=== PATIENT | female | born 1965 | race Caucasian/White ===

== ENCOUNTER → 2019-08-29 | Outpatient (CLI) | payer BC ==
--- NOTE | 2019-09-02 12:39 | Diagnostic Imaging Report ---
INDICATION: Routine screening. COMPARISON: 08/28/2013 and 11/23/2011. TECHNIQUE: 2D and 3D bilateral screening mammography was performed with CAD. FINDINGS: Scattered fibroglandular densities are identified bilaterally. The small circumscribed nodule in the outer right breast is stable. No spiculated mass or malignant appearing microcalcifications are seen. The axillae are unremarkable. IMPRESSION: No mammographic features suspicious for malignancy are identified. ACR BI-RADS Category 2: Benign findings. Result letter will be mailed to the patient. Note: At least 10% of breast cancer is not imaged by mammography. Dictated by: Dictated on workstation # [id number]
== END ==
LOC: RAD 14:24
PROVIDERS: ATTEND Internal Medicine
DX: Z12.31 Encounter for screening mammogram for malignant neoplasm of breast (principal)
CPT/HCPCS: 77063; 77067

== ENCOUNTER 2019-10-16 05:33 | Outpatient (RCR) | payer BC ==
[~2019-10-16] VITALS: Ht 165.1 cm; Wt 88.2 kg
[~2019-10-16 05:33] MED LIST: MV-M1TAB57 PO
== END 2019-10-16 13:46 | disposition home or self-care (01) ==
LOC: PREOP 05:33
PROVIDERS: ATTEND Surgery
DX: Z01.812 Encounter for preprocedural laboratory examination (principal); Z20.828 Contact with and (suspected) exposure to other viral communicable diseases; Z80.0 Family history of malignant neoplasm of digestive organs; Z88.1 Allergy status to other antibiotic agents
CPT/HCPCS: 87635

== ENCOUNTER 2019-10-21 11:57 | Day surgery (SDC) | payer BC ==
[~2019-10-21] VITALS: Ht 165.1 cm; Wt 88.2 kg
[2019-10-21] VITALS (8 sets, daily range): BP systolic 97–138; BP diastolic 63–87
[2019-10-21] MEDS ORDERED: LACTATED RINGERS 1,000 ML IV PRN (12:15)
[2019-10-21] MEDS ORDERED: LACTATED RINGERS 1,000 ML IV ONE (12:17)
--- NOTE | 2019-10-21 12:38 | Progress Note-Pre Operative ---
Pre-Operative Progress Note H&P Reviewed The H&P was reviewed, patient examined and no changes noted. Date Seen by Provider: Oct 21, 2019 Time Seen by Provider: 12:37 Date H&P Reviewed: Oct 21, 2019 Time H&P Reviewed: 12:37 Pre-Operative Diagnosis: family history colon cancer CHAPINCITO OVIEDO DO Oct 21, 2019 12:38
[2019-10-21] MEDS ORDERED: MIDAZOLAM 2 MG/2 ML (VERSED) VIAL ONE (13:00)
[2019-10-21] MEDS ORDERED: proPOfol 200 MG/20 ML (DIPRIVAN) VIAL IV ONE (13:00)
--- OUTSIDE RECORDS SUMMARY | 2019-10-21 13:22 | XMS REPORT | Continuity of Care Document ---
Author Organization Unknown Address Unknown Phone Unavailable Allergies Active Description Code Type Severity Reaction Onset Reported/Identified Relationship to Patient Clinical Status Yes No Known Drug Allergies [id number] Drug Allergy Unknown N/A 09/29/2007 Yes levofloxacin [id number] Drug Allergy Unknown Vomiting 10/15/2019 Medications There is no data. Problems Date Dx Coded Attending Type Code Diagnosis Diagnosed By 03/08/1345 CHAPINCITO OVIEDO DO Ot Z01.812 ENCOUNTER FOR PREPROCEDURAL LABORATORY E 03/08/1345 CHAPINCITO OVIEDO DO Ot Z20.828 CONTACT W AND EXPOSURE TO OTH VIRAL COMM 03/08/1345 CHAPINCITO OVIEDO DO Ot Z80. 0 FAMILY HISTORY OF MALIGNANT NEOPLASM OF 03/08/1345 CHAPINCITO OVIEDO DO Ot Z88. 1 ALLERGY STATUS TO OTHER ANTIBIOTIC AGENT 12/24/2014 BENJI VALDEZ DO Ot V76.12 12/24/2014 BENJI VALDEZ DO Ot V76.12 07/06/2016 BENJI VALDEZ DO Ot V76.12 OT SCREEN MAMMO-MALIGN NEOPLASM OF [place] Procedures There is no data. Results Test Result Range Coronavirus SARS-CoV-2 SO 2018 - 0 08:18 Coronavirus Ab [Units/volume] in Serum Negative Negative Encounters ACCT No. Visit Date/Time Discharge Status Pt. Type Provider Facility Loc./Unit Complaint [id number] 10/16/2019 05:33:00 020 13:46:00 DIS Outpatient CHAPINCITO OVIEDO DO [facility] PREOP FAMILY HISTORY COLON CA NCER [id number] 08/29/2019 14:24:00 020 23:59:59 CLS Outpatient BENJI VALDEZ DO [facility] RAD SCREENING [id number] 08/28/2013 13:12:00 014 23:59:59 CLS Outpatient BENJI VALDEZ DO [facility] RAD SCREENING [id number] 10/21/2019 11:57:[address] Outpatient CHAPINCITO OVIEDO DO [facility] ENDO FAMILY HISTORY COLON CANCER
--- OUTSIDE RECORDS SUMMARY | 2019-10-21 13:22 | XMS REPORT | Clinical Summary ---
Author Author User, Ness Pratt Organization Celia Sadler DO, FACP Address Unknown Phone Allergies, Adverse Reactions, Alerts Allergy Name Reaction Description Start Date Severity Status Pr ovider LEVAQUIN sensitivity only Critical Active Celia Sadler Conditions or Problems Problem Name Problem Code Onset Date Status Entry Date Provider Comment Standard Description Annotate VIRAL INFECTION, ACUTE 079.99 Resolved Charis Sadler Unspecified viral infection in conditions classified elsewhere and of unspecified site IMMUNOCOMPROMISED 279.9 Resolved Celia rowe Unspecified disorder of immune mechanism FEVER 780.6 Resolved Celia Sadler Fever and other physiologic disturbances of temperature regulation DIARRHEA, ACUTE 787.91 Resolved Celia anglin Diarrhea HEMATOCHEZIA 578.1 Resolved Celia Sadler Blood in stool DEHYDRATION 276.51 Resolved Celia Sadler Dehydration PANCYTOPENIA 284.1 Resolved Celia Sadler Pancytopenia NEUROPATHY, IDIOPATHIC 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.9 Resolved 20 19/10/28 Celia Sadler Unspecified idiopathic peripheral neurop athy ANEMIA NOS 285.9 Resolved Celia Sadler Anemia, unspecified PANCYTOPENIA 284.1 Resolved Celia Sadler Pancytopenia NEVUS 216.9 Resolved Celia Sadler Benign neoplasm of skin, site unspecified KNEE PAIN, LEFT 719.46 Resolved Celia anglin Pain in joint involving lower leg SEBACEOUS CYST, INFECTED 706.2 Resolved Celia Sadler Sebaceous cyst SINUSITIS, SPHENOIDAL, ACUTE 461.3 Resolved Celia Sadler Acute sphenoidal sinusitis DIZZINESS 780.4 Resolved Celia Sadler Dizziness and giddiness NAUSEA 787.02 Resolved Celia Sadler Nausea alone WEAKNESS 780.79 Resolved Celia Sadler Other malaise and fatigue HEART MURMUR, SYSTOLIC 785.2 Resolved Mi katlin Sadler Undiagnosed cardiac murmurs NECK PAIN 723.1 Resolved Celia Sadler Cervicalgia OTHER SPECIFIED DISORDER OF SKIN 709.8 Resolved 201 06/13/28 Celia Sadler Other specified disorders of skin SKIN NEOPLASM, BENIGN 216.9 Resolved Celia Sadler Benign neoplasm of skin, site unspecified HIP PAIN 719.45 Active Celia Sadler Pain in joint involving pelvic region and thigh ELEVATED BLOOD PRESSURE WITHOUT DIAGNOSIS OF HYPERTENSION 796.2 Resolved Celia Sadler Elevated bl ood pressure reading without diagnosis of hypertension OSTEOARTHRITIS 715.90 Active Celia [place] r Osteoarthrosis, unspecified whether generalized or localized, involving unspecified site WELL WOMAN V70.0 Active Celia Sadler Routine general medical examination at a health care facility Medication List Medication Instructions Start Date Stop Date Generic Name NDC Status Provider Patient Instruction MOBIC 15 MG TABS 1 PO daily MELOXICAM [id number] [id number] No Longer Active Celia Sadler PREDNISONE 10 MG TAB 2 PO at once for 2 days then 1 PO daily for 2 days. PREDNISONE [id number] No Longer Active Celia Rin Sadler ANTIVERT 25 MG TABS 1 PO Q6hrs prn MECLIZINE HC L 12393565321 No Longer Active Celia Delfina Sadler PHENERGAN 25 MG TAB 1 PO Q6hrs prn PROMETHAZINE H CL No Longer Active Celia Delfina Sadler XANAX 0.25 MG TABS 1-2 PO Q6hrs prn dizziness A LPRAZOLAM 40342822794 No Longer Active Ceila Delfina Sadler OMEPRAZOLE 20 MG CPDR 1 PO daily OMEPRAZOLE 0009 2893460 No Longer Active Celia Delfina Sadler ZOFRAN ODT 8 MG TBDP 1 PO Q6hrs prn nausea ONDA NSETRON 72095506671 No Longer Active Celia Delfina Sadler TRANSDERM-SCOP 1.5 MG PT72 1 patch behind ear and change reji ry 3 days SCOPOLAMINE BASE 56322045290 No Longer Active Celia Sarah Sadler TRANSDERM-SCOP 1.5 MG PT72 1 patch behind ear and change reji ry 3 days SCOPOLAMINE BASE 63880685111 No Longer Active Lisette CEJA'S NASAL SPRAY (DEXAMETHASONE, GENTAMICIN, SA LINE) 2 puffs each nostril TID for [address] CEJA'S NASAL SP RAY (DEXAMETHASONE, GENTAMICIN, SALINE) No Longer Active Lisette Vasquze Vital Signs Date Name Value Unit Range Description blood pressure, diastolic - 8462-4 70 mm[Hg] BP christian blood pressure, systolic - 8480-6 122 mm[Hg] BP sys pulse rate E&M - 8867-4 82 /min H eart rate respiratory rate E&M - 9279-1 14 /min Resp rate temperature E&M 99.6 [degF] Body temp erature weight E&M - 3141-9 200 [lb_av] Weigh t Measured blood pressure, diastolic - 8462-4 82 mm[Hg] BP christian blood pressure, systolic - 8480-6 120 mm[Hg] BP sys pulse rate E&M - 8867-4 88 /min H eart rate respiratory rate E&M - 9279-1 14 /min Resp rate temperature E&M 98.6 [degF] Body temp erature weight E&M - 3141-9 204 [lb_av] Weigh t Measured Diagnostic Results Date Name Value Unit Range Description Clinical Lists Update: CBC,CMP,FLP,TSH - Chemistry Estimated Glomerular Filtration Rate (calc) 93 mL/ min/1.73m2 glucose, plasma fasting 88 mg/dL albumin, serum 3.8 g/dL alkaline phosphatase, serum 60 U/L urea nitrogen, blood 12 mg/dL calcium, serum 8.8 mg/dL chloride, serum 103 mmol/L cholesterol, serum 193 mg/dL cholesterol/HDL ratio, serum, percent 3.9 anion gap, serum 9 sodium, serum 134 mmol/L triglyceride, serum, fasting 121 mg/dL bilirubin, serum, total 0.5 mg/dL alanine aminotransferase (SGPT), serum 14 U/L aspartate aminotransferase (SGOT), serum 16 U/L protein, total, serum 6.3 g/dL potassium, serum 4.4 mmol/L LDL cholesterol, serum 120 mg/dL thyroid stimulating hormone, serum 2.42 u[iU]/mL HDL cholesterol, serum 49.0 mg/dL creatinine, serum 0.7 mg/dL carbon dioxide, venous blood 26.0 mmol/L Clinical Lists Update: CBC,CMP,FLP,TSH - Hematology erythrocyte (RBC) count 4.43 10*6/mm3 leukocyte count, blood 6.4 10*3/mm3 mean corpuscular volume, RBC 81 fL red blood cell distribution width 14.9 % hemoglobin, blood 11.6 g/dL platelet count 269 10*3/mm3 hematocrit, blood 35.7 % Encounters Code Encounter Date Provider Facility CPT-07698 Ofc Vst, Est Level IV 15:55:09 CDT Celia Anna Sadler DO, FACP CPT-32110 Ofc Vst, Est Level III 17:28:07 CDT Celia S cari Sadler DO, FACP CPT-32162 Ofc Vst, Est Level III 13:02:11 CDT Celia S cari Sadler DO, FACP CPT-94034 Ofc Vst, Est Level IV 10:15:33 TURBOGENERATOR OPERATOR Celia Anna Sadler [facility] CPT-96513 Ofc Vst, Est Level IV 10:56:56 CDT Celia Anna Sadler DO, FACP CPT-69298 Ofc Vst, Est Level IV 10:52:34 CDT Celia Anna Sadler DO, FACP CPT-73250 Ofc Vst, Est Level III 16:04:34 CDT Celia S cari Sadler [facility] CPT-26174 Ofc Vst, Est Level II 12:46:19 CDT Celia Anna Sadler DO, FACP CPT-60159 Ofc Vst, Est Level III 13:53:48 TURBOGENERATOR OPERATOR Celia Carlos Sadler [facility] CPT-93627 Ofc Vst, Est Level III 14:16:27 CDT Celia S cari Sadler DO, FACTorrie CPT-37934 Ofc Vst, Est Level IV 10:53:16 CDT Celia Castillo kala Sadler DO, FACTorrie CPT-73671 Ofc Vst, New Level IV 11:21:46 CDT Celia Sadler DO, FACP Procedures Code Procedure Name Date Entry Date Standard Desc ription CPT-74748 Preventive, Est, (40-64) 17:04:43 CDT 11/02 CPT-93698 Preventive, Est, (40-64) 18:42:46 CDT 11/06
--- OUTSIDE RECORDS SUMMARY | 2019-10-21 13:22 | XMS REPORT | Clinical Summary ---
Author Author Ness gomez Organization Celia Sadler DO, [place] [address] Phone Unavailable Allergies, Adverse Reactions, Alerts Allergy Name Reaction Description Start Date Severity Status Pr ovider LEVAQUIN sensitivity only Critical Active Celia Sadler Conditions or Problems Problem Name Problem Code Onset Date Status Entry Date Provider Comment Standard Description Annotate HIP PAIN 719.45 Active Celia Sadler PAIN IN JOINT, PELVIC REGION AND THIGH OSTEOARTHRITIS 715.90 Active Celia [place] r OSTEOARTHROSIS, UNSPECIFIED WHETHER GENERALIZED OR LOCALIZED, UNSPECIFIED SITE WELL WOMAN V70.0 Active Celia Sadler ROUTINE GENERAL MEDICAL EXAMINATION AT HEALTH CARE FACILITY Medication List Medication Instructions Start Date Stop Date Generic Name NDC Status Provider Patient Instruction Drug Treatment Unknown - unknown Vital Signs Date Name Value Unit Range Description blood pressure, diastolic 82 mm[Hg] BP christian blood pressure, systolic 120 mm[Hg] BP sys pulse rate E&M 88 /min Heart rate respiratory rate E&M 14 /min Resp rate temperature E&M 98.6 [degF] Body temp erature weight E&M 204 [lb_av] Weight Measure d
--- OUTSIDE RECORDS SUMMARY | 2019-10-21 13:22 | XMS REPORT | Clinical Summary ---
Author Author Ness gomez Organization Celia Sadler DO, [place] [address] Phone Unavailable Allergies, Adverse Reactions, Alerts Allergy [...]
--- OUTSIDE RECORDS SUMMARY | 2019-10-21 13:22 | XMS REPORT ---
Author Aura Esqueda [facility] eClinicalWorks Address Unknown Phone Unavailable Care Team Providers Care Tobacco Sprayer Name Role Phone LUCIO HANLEY Unavailable Allergies No Known Allergies Problems Problem Type Condition Code Onset Dates Condition Statu s Assessment Encounter for immunization Z23 A ctive Medications No Known Medications Procedures Procedure Coding System Code Date SINGLE IMMUNIZATION ADMIN CPT-4 75151 Jan FLUARIX QUAD P-FREE 3 AND UP .50 2015 CPT-4 35293 Jan 24, 2016 Results No Known Results Immunizations Vaccine Administration Date FLUARIX QUAD P-FREE 3 AND UP .50 2015Jan 24, 2016 Summary Purpose eClinicalWorks Submission
--- NOTE | 2019-10-21 13:47 | Progress Note-Post Operative ---
Post-Operative Progess Note Surgeon (s)/Teaching Assistant (s) Surgeon CHAPINCITO OVIEDO DO Teaching Assistant: na Pre-Operative Diagnosis family history colon cancer Post-Operative Diagnosis normal colon Procedure & Operative Findings Date of Procedure 10/21/19 Procedure Performed/Findings colonoscopy Anesthesia Type per [facility] Estimated Blood Loss Estimated blood loss (mL): none Specimens/Packing Specimens Removed none CHAPINCITO OVIEDO DO Oct 21, 2019 13:47
--- NOTE | 2019-10-21 13:49 | Discharge Inst-Simple/Standard ---
Discharge Inst-Standard Patient Instructions/Follow Up Plan of Care/Instructions/FU: Peterson- 5 years Need repeat colonoscopy in 5 years due to family history of colon cancer. If you have any bowel issues before then be seen at that time. Activity as Tolerated: Yes Discharge Diet: Regular Diet CHAPINCITO OVIEDO DO Oct 21, 2019 13:49
--- NOTE | 2019-10-21 15:03 | Anesthesia-General Post-Op ---
MAC Patient Condition Mental Status/LOC: Same as Preop Cardiovascular: Satisfactory Nausea/Vomiting: Absent Respiratory: Satisfactory Pain: Controlled Complications: Absent Post Op Complications Complications None Follow Up Care/Instructions Patient Instructions None needed. Anesthesiology Discharge Order Discharge Order Patient was seen after the procedure and she was doing well, no complaints, stable vital signs, no apparent adverse anesthesia problems. EDI MYLES DO Oct 21, 2019 15:03
--- NOTE | 2019-10-21 15:27 | OPERATIVE REPORT ---
DATE OF SERVICE: 10/21/2019 PREOPERATIVE DIAGNOSIS: Family history of colon cancer. POSTOPERATIVE DIAGNOSIS: Normal colonoscopy. PROCEDURE PERFORMED: Colonoscopy. SURGEON: Chapincito Winkler DO ANESTHESIA: Per MDA. ESTIMATED BLOOD LOSS: None. COMPLICATIONS: None. INDICATIONS FOR PROCEDURE: The patient is a 54-year-old female with family history of colon cancer. She understands the risks and benefits of procedure and wished to proceed with the procedure. Consent was signed in the chart. DESCRIPTION OF PROCEDURE: The patient was taken to the endoscopy suite and placed in a left lateral recumbent position. Timeout was performed. Digital rectal exam was performed. There were no palpable polyps, masses or ulcerations. Scope was inserted in the rectum and advanced all the way to cecum with minimal difficulty. Prep was adequate. Scope was then slowly retracted back. There were no polyps, masses or ulceration of the cecum, ascending, transverse, descending and sigmoid colon. Once in the rectum, scope was retroflexed noting no other pathology. Scope was returned to its normal position, slowly withdrawn until completely removed. The patient tolerated the procedure well without any complications. She was taken to the recovery room in stable condition. RECOMMENDATIONS: The patient will need repeat colonoscopy in 5 years. Any issues before that be seen at that time. Job ID: [id number] DocumentID: [id number] Dictated Date: 10/21/2019 13:51:20 Drain Cleaner Date: 10/21/2019 15:26:38 Dictated By: CHAPINCITO WINKLER DO
== END 2019-10-21 14:25 | disposition home or self-care (01) ==
LOC: ENDO 11:57
PROVIDERS: ATTEND Surgery
DX: Z12.11 Encounter for screening for malignant neoplasm of colon (principal); Z80.0 Family history of malignant neoplasm of digestive organs; Z88.1 Allergy status to other antibiotic agents
CPT/HCPCS: 84703

== ENCOUNTER 2020-05-01 14:48 | Inpatient (IN) | payer BC ==
[~2020-05-01] VITALS: Ht 157 cm; Wt 84.0 kg
--- NOTE | 2020-05-01 15:14 | ED Abdominal Pain ---
General Chief Complaint: Abdominal/GI Problems Stated Complaint: STOMACH PAIN Source of Information: Patient Exam Limitations: No Limitations History of Present Illness Date Seen by Provider: May 01, 2020 Time Seen by Provider: 14:56 Initial Comments Patient presents ER by private conveyance from home with chief complaint for about an hour and a half she has been experiencing epigastric abdominal discomfort without nausea. She rates it as a 5 or 6 out of 10. She is had a bowel movement today and her last intake was breakfast around 8 hours ago. She says she had the same pain lasted about an hour or so a month ago but since it spontaneously resolved she never got it checked out. She is a patient of Dr. Clarke. She takes vitamins but no routine medications. She has a history of a but no other abdominal surgeries. No heart disease. She does have a history of anxiety with panic disorder. When she first arrived she became choked up saying she could not breathe and this episode lasted about 1 minute. No loss of consciousness. Echocardiogram [address] Veliz demonstrates normal ejection fraction of 60% with mild mitral and tricuspid regurgitation. Allergies and Home Medications Allergies Coded Allergies: levofloxacin (Verified Allergy, Unknown, Vomiting, 10/15/19) Home Medications Mv-Mn/Folic Acid/Calcium/Vit K 1 Each Tablet, 1 EACH PO DAILY, (Reported) Patient Home Medication List Home Medication List Reviewed: Yes Review of Systems Review of Systems Constitutional: No chills, No diaphoresis, No dizziness, No fever, No malaise EENTM: No Blurred Vision, No Double Vision Respiratory: See HPI; Denies Cough, Denies Orthopnea; Shortness of Air Cardiovascular: Denies Chest Pain, Denies Edema, Denies Lightheadedness Gastrointestinal: Abdominal Pain; Denies Constipated (Bowel movement this morning), Denies Diarrhea, Denies Nausea Genitourinary: Denies Burning, Denies Discharge Musculoskeletal: No back pain, No joint pain Skin: No pruritus, No rash Psychiatric/Neurological: Denies Headache, Denies Numbness All Other Systems Reviewed Negative Unless Noted: Yes Past Uwmnten-Jecqpw-Ckwcvs Hx Patient Social History Alcohol Use: Denies Use Drug of Choice: Denies recreational drug use Smoking Status: Never a Smoker Recent Hopitalizations: No Seasonal Allergies Seasonal Allergies: No Past Medical History Surgeries: Yes (cyst removed x2, L foot sx, knee scope, ) Section Respiratory: No Cardiac: No Neurological: No Reproductive Disorders: No Genitourinary: No Gastrointestinal: No Musculoskeletal: No Endocrine: No HEENT: No Cancer: No Psychosocial: No Integumentary: No Blood Disorders: No Family Medical History Colon cancer Physical Exam Vital Signs Vital Signs - First Documented 05/01/20 14:50 Temp 35.9 Pulse 75 Resp 18 B/P (MAP) 167/92 (117) Pulse Ox 99 Capillary Refill : Height/Weight/BMI Height: '" Weight: lbs. oz. kg; 32.35 BMI Method: General Appearance: WD/WN, moderate distress HEENT: PERRL/EOMI, pharynx normal Neck: non-tender, full range of motion, supple, normal inspection Respiratory: lungs clear, normal breath sounds, no respiratory distress, no accessory muscle use Cardiovascular: normal peripheral pulses, regular rate, rhythm Peripheral Pulses: 2+ Radial Pulses (R), 2+ Radial Pulses (L) Gastrointestinal: normal bowel sounds, soft, no organomegaly, guarding (Epigastric); No rebound; tenderness (Epigastric and right upper quadrant with out Vigil sign. Negative for tenderness or rebound tenderness over McBurney's point, mesenteric signs or psoas signs.) Neurologic/Psychiatric: alert, normal mood/affect, oriented x 3 Skin: normal color, warm/dry Progress/Results/Core Measures Results/Orders Lab Results Laboratory Tests Test 05/01/20 15:00 Range/Units White Blood Count 9.4 4.3-11.0 10^3/uL Red Blood Count 4.75 3.80-5.11 10^6/uL Hemoglobin 14.2 11.5-16.0 g/dL Hematocrit 43 35-52 % Mean Corpuscular Volume 90 80-99 fL Mean Corpuscular Hemoglobin 30 25-34 pg Mean Corpuscular Hemoglobin Concent 33 32-36 g/dL Red Cell Distribution Width 12.3 10.0-14.5 % Platelet Count 259 130-400 10^3/uL Mean Platelet Volume 10.5 9.0-12.2 fL Immature Granulocyte % (Auto) 0 % Neutrophils (%) (Auto) 69 42-75 % Lymphocytes (%) (Auto) 23 12-44 % Monocytes (%) (Auto) 5 0-12 % Eosinophils (%) (Auto) 2 0-10 % Basophils (%) (Auto) 1 0-10 % Neutrophils # (Auto) 6.5 1.8-7.8 10^3/uL Lymphocytes # (Auto) 2.2 1.0-4.0 10^3/uL Monocytes # (Auto) 0.4 0.0-1.0 10^3/uL Eosinophils # (Auto) 0.2 0.0-0.3 10^3/uL Basophils # (Auto) 0.1 0.0-0.1 10^3/uL Immature Granulocyte # (Auto) 0.0 0.0-0.1 10^3/uL Sodium Level 139 135-145 MMOL/L Potassium Level 3.5 L 3.6-5.0 MMOL/L Chloride Level 104 98-107 MMOL/L Carbon Dioxide Level 22 21-32 MMOL/L Anion Gap 13 5-14 MMOL/L Blood Urea Nitrogen 18 7-18 MG/DL Creatinine 0.86 0.60-1.30 MG/DL Estimat Glomerular Filtration Rate > 60 BUN/Creatinine Ratio 21 Glucose Level 110 H 70-105 MG/DL Calcium Level 9.4 8.5-10.1 MG/DL Corrected Calcium 9.1 8.5-10.1 MG/DL Total Bilirubin 0.4 0.1-1.0 MG/DL Aspartate Amino Transf (AST/SGOT) 21 5-34 U/L Alanine Aminotransferase (ALT/SGPT) 27 0-55 U/L Alkaline Phosphatase 64 40-136 U/L Troponin I < 0.028 <0.028 NG/ML C-Reactive Protein High Sensitivity 0.27 0.00-0.50 MG/DL Total Protein 7.4 6.4-8.2 GM/DL Albumin 4.4 3.2-4.5 GM/DL Lipase 24 8-78 U/L Serum Alcohol < 10 <10 MG/DL My Orders Orders - JENN FLORIAN Ed Iv/Invasive Line Start (05/01/20 15:03) Lactated Ringers (Lr 1000 Ml Iv Solution (05/01/20 15:15) Ct Abdomen/Pelvis W (05/01/20 15:03) Ua Culture If Indicated (05/01/20 15:03) Drug Screen Stat (Urine) (05/01/20 15:03) Alcohol (05/01/20 15:03) Lipase (05/01/20 15:03) Cbc With Automated Diff (05/01/20 15:03) Comprehensive Metabolic Panel (05/01/20 15:03) Hs C Reactive Protein (05/01/20 15:03) Fentanyl Injection (Sublimaze Injection (05/01/20 15:15) Pantoprazole Injection (Protonix Injecti (05/01/20 15:15) Ekg Tracing (05/01/20 15:08) Continuous Ekg Monitoring (05/01/20 15:08) Troponin I (05/01/20 15:08) Chest 1 View, Ap/Pa Only (05/01/20 15:18) Ondansetron Injection (Zofran Injectio (05/01/20 15:30) Ondansetron Injection (Zofran Injectio (05/01/20 15:22) Iohexol Injection (Omnipaque 350 Mg/Ml 1 (05/01/20 15:30) Received Contrast (Hold Metformin- Contr (05/01/20 15:30) Ns (Ivpb) (Sodium Chloride 0.9% Ivpb Bag (05/01/20 15:30) Medications Given in ED Current Medications Medications Dose Ordered Sig/Domingo Route Start Time Stop Time Status Last Admin Dose Admin Fentanyl Citrate 25 mcg ONCE ONCE IVP 05/01/20 15:15 05/01/20 15:16 DC 05/01/20 15:18 25 MCG Iohexol 100 ml ONCE ONCE IV 05/01/20 15:30 05/01/20 15:32 DC 05/01/20 15:40 100 ML Lactated Ringer's 1,000 ml @ 0 mls/hr Q0M ONCE IV 05/01/20 15:15 05/01/20 15:16 DC 05/01/20 15:18 1,000 MLS/HR Ondansetron HCl 8 mg ONCE ONCE IVP 05/01/20 15:30 05/01/20 15:31 DC 05/01/20 15:28 8 MG Pantoprazole 40 mg ONCE ONCE IV 05/01/20 15:15 05/01/20 15:16 DC 05/01/20 15:18 40 MG Sodium Chloride 100 ml ONCE ONCE IV 05/01/20 15:30 05/01/20 15:32 DC 05/01/20 15:40 80 ML Vital Signs/I&O 05/01/20 14:50 Temp 35.9 Pulse 75 Resp 18 B/P (MAP) 167/92 (117) Pulse Ox 99 Progress Progress Note : Time: 15:12 Progress Note Patient appeared to have a panic attack when she first arrived. This has since resolved. Because of her sudden onset of shortness of air an EKG and troponin were ordered. Patient does not have any significant risk factors for coronary disease except for her age. With a negative troponin her heart score would be 2 points Low risk; 0.9-1.7% 30-day MACE. Repeat troponin at 3 hours (1630) and if negative, discharge home with outpatient follow-up. Differential for her epigastric pain includes although unlikely atypical angina. Gallbladder, gastritis, pancreatitis, colitis. Plan to give her some pantoprazole and 25 mcg of fentanyl. We did review her medical records. We will give her a liter of fluids and get a CT of her abdomen and pelvis to rule out significant, surgical disease. Initial ECG Impression Date: May 01, 2020 Initial ECG Impression Time: 14:52 Initial ECG Rate: 63 Initial ECG Rhythm: Normal Sinus Initial ECG Intervals: Normal Initial ECG Impression: Normal Initial ECG Comparisson: No Previous ECG Available Comment Normal sinus rhythm without clinically relevant ST elevation or depression. Diagnostic Imaging Diagonstic Imaging: CT (With IV contrast) Plain Films/CT/US/NM/MRI: abdomen, pelvis Comments [facility], [place] NAME: [facility] REC#: [id number] PT STATUS: REG ER : 1965 PHYSICIAN: JENN FLORIAN MD ADMIT DATE: 05/01/20/ER Draft Date of Exam:05/01/20 CT ABDOMEN/PELVIS W PROCEDURE: CT abdomen and pelvis with contrast. TECHNIQUE: Multiple contiguous axial images were obtained through the abdomen and pelvis after administration of intravenous contrast. Auto Exposure Controls were utilized during the CT exam to meet ALARA standards for radiation dose reduction. All CT scans use one or more of the following dose optimizing techniques: automated exposure control, MA and/or KvP adjustment based on patient size and exam type or iterative reconstruction. INDICATION: Right upper quadrant pain. FINDINGS: The heart size is normal. There is a very large hiatal hernia with majority of the stomach being within the thoracic cavity. Pylorus is at the expected location of the GE junction. Stomach does not, however, appear to be torsed. The liver is normal in size and without focal lesions. Gallbladder is unremarkable. There is no biliary ductal dilatation. Spleen is normal. The pancreas and adrenal glands are unremarkable. The kidneys are normal in appearance. There is a midline intra-abdominal wall hernia which appears to contain a closed loop of small bowel. Bowel proximal to this is dilated with air-fluid levels. There is no free air. No ascites. Bladder is normal. Uterus is normal. There is no pelvic mass or adenopathy. There are mild degenerative changes in the spine. IMPRESSION: 1. Small bowel obstruction secondary to a closed loop obstruction through a small midline intra-abdominal wall hernia. 2. Large hiatal hernia with the entire stomach being virtually within the thoracic cavity. Findings conveyed directly to Dr. Florian at 3:55 p.m. via telephone. Dictated on workstation # [id number] Dict: 05/01/20 1552 Trans: 05/01/20 1600 PJE [id number] Interpreted by: SUSY KLEIN MD Electronically signed by: Reviewed: Reviewed by Mo Diagonstic Imaging: Xray Plain Films/CT/US/NM/MRI: chest Comments [facility], [place] NAME: [facility] REC#: [id number] PT STATUS: REG ER : 1965 PHYSICIAN: JENN FLORIAN MD ADMIT DATE: 05/01/20/ER Draft Date of Exam:05/01/20 CHEST 1 VIEW, AP/PA ONLY INDICATION: Epigastric pain and shortness of breath. FINDINGS: There is a large hiatal hernia. Heart size is normal. Mediastinum is unremarkable. There is no pneumothorax. There are some dilated loops of small bowel in the midabdomen. IMPRESSION: 1. Large hiatal hernia. 2. Dilated loops of small bowel suspect for small bowel obstruction. Dictated on workstation # [id number] Dict: 05/01/20 1556 Trans: 05/01/20 1601 PJE [id number] Interpreted by: SUSY KLEIN MD Electronically signed by: Reviewed: Reviewed by Me Departure Communication (Admissions) Time/Spoke to Admitting Phy: 16:00 Discussed the case with Dr. Sánchez and he would like the patient put up with IV fluids, n.p.o. at midnight, clear liquid diet for now and pain and nausea medicines. Plan for ventral hernia repair at 930 in the OR. Impression Primary Impression: Ventral hernia with obstruction and without gangrene Additional Impression: Hiatal hernia Disposition: ADMITTED INPATIENT Condition: Stable Admissions Decision to Admit Reason: Admit from ER (General) Decision to Admit/Date: May 01, 2020 Time/Decision to Admit Time: 15:45 Departure-Patient Inst. Referrals: BENJI VALDEZ DO (PCP/Family) Primary Care Physician JENN FLORIAN May 01, 2020 15:14
[2020-05-01] MEDS ORDERED: LACTATED RINGERS 1,000 ML IV ONE (15:15)
[2020-05-01] MEDS ORDERED: PANTOPRAZOLE 40 MG (PROTONIX) VIAL IV ONE (15:15)
[2020-05-01] MEDS ORDERED: fentaNYL INJECTION 100 MCG/2 ML AMP IVP ONE (15:15)
[2020-05-01 15:19] LABS: BASOPHILS # (AUTO) 0.1 10^3/uL (0.0-0.1); BASOPHILS % (AUTO) 1 % (0-10); EOSINOPHILS # (AUTO) 0.2 10^3/uL (0.0-0.3); EOSINOPHILS % (AUTO) 2 % (0-10); HEMATOCRIT 43 % (35-52); HEMOGLOBIN 14.2 g/dL (11.5-16.0); LYMPHOCYTES # (AUTO) 2.2 10^3/uL (1.0-4.0); LYMPHOCYTES % (AUTO) 23 % (12-44); MEAN CORPUSCULAR HEMOGLOBIN 30 pg (25-34); MEAN CORPUSCULAR HGB CONC 33 g/dL (32-36); MEAN CORPUSCULAR VOLUME 90 fL (80-99); MEAN PLATELET VOLUME 10.5 fL (9.0-12.2); MONOCYTES # (AUTO) 0.4 10^3/uL (0.0-1.0); MONOCYTES % (AUTO) 5 % (0-12); NEUTROPHILS # (AUTO) 6.5 10^3/uL (1.8-7.8); NEUTROPHILS % (AUTO) 69 % (42-75); PLATELET COUNT 259 10^3/uL (130-400); WHITE BLOOD COUNT 9.4 10^3/uL (4.3-11.0)
[2020-05-01 15:21] LABS: ALBUMIN 4.4 GM/DL (3.2-4.5); CHLORIDE 104 MMOL/L (98-107); POTASSIUM 3.5 MMOL/L (3.6-5.0); SODIUM 139 MMOL/L (135-145)
[2020-05-01 15:22] LABS: CALCIUM 9.4 MG/DL (8.5-10.1)
[2020-05-01] MEDS ORDERED: ONDANSETRON 4 MG/2 ML (SDV) Z0FRAN ONE (15:22)
[2020-05-01 15:23] LABS: GLUCOSE 110 MG/DL (70-105); TOTAL PROTEIN 7.4 GM/DL (6.4-8.2)
[2020-05-01 15:24] LABS: CARBON DIOXIDE 22 MMOL/L (21-32)
[2020-05-01 15:25] LABS: BILIRUBIN,TOTAL 0.4 MG/DL (0.1-1.0)
[2020-05-01 15:26] LABS: ALKALINE PHOSPHATASE 64 U/L (40-136)
[2020-05-01 15:27] LABS: CREATININE SERUM 0.86 MG/DL (0.60-1.30); GFR ESTIMATED > 60
[2020-05-01 15:28] LABS: BUN/CREATININE RATIO 21
[2020-05-01 15:30] LABS: ALANINE AMINOTRANSFERASE 27 U/L (0-55); LIPASE 24 U/L (8-78)
[2020-05-01] MEDS ORDERED: HOLD METFORMIN - RECEIVED CONTRAST 20 ML VIAL IV SCH (15:30)
[2020-05-01] MEDS ORDERED: IOHEXOL 350 MG/ML 100 ML (OMNIPAQUE 350) VIAL IV ONE (15:30)
[2020-05-01] MEDS ORDERED: NS 100 ML (IVPB) BAG IV ONE (15:30)
[2020-05-01] MEDS ORDERED: ONDANSETRON 4 MG/2 ML (SDV) Z0FRAN IVP ONE (15:30)
--- NOTE | 2020-05-01 16:01 | Diagnostic Imaging Report ---
PROCEDURE: CT abdomen and pelvis with contrast. TECHNIQUE: Multiple contiguous axial images were obtained through the abdomen and pelvis after administration of intravenous contrast. Auto Exposure Controls were utilized during the CT exam to meet ALARA standards for radiation dose reduction. All CT scans use one or more of the following dose optimizing techniques: automated exposure control, MA and/or KvP adjustment based on patient size and exam type or iterative reconstruction. INDICATION: Right upper quadrant pain. FINDINGS: The heart size is normal. There is a very large hiatal hernia with majority of the stomach being within the thoracic cavity. Pylorus is at the expected location of the GE junction. Stomach does not, however, appear to be torsed. The liver is normal in size and without focal lesions. Gallbladder is unremarkable. There is no biliary ductal dilatation. Spleen is normal. The pancreas and adrenal glands are unremarkable. The kidneys are normal in appearance. There is a midline intra-abdominal wall hernia which appears to contain a closed loop of small bowel. Bowel proximal to this is dilated with air-fluid levels. There is no free air. No ascites. Bladder is normal. Uterus is normal. There is no pelvic mass or adenopathy. There are mild degenerative changes in the spine. IMPRESSION: 1. Small bowel obstruction secondary to a closed loop obstruction through a small midline intra-abdominal wall hernia. 2. Large hiatal hernia with the entire stomach being virtually within the thoracic cavity. Findings conveyed directly to Dr. Florian at 3:55 p.m. via telephone. Dictated by: Dictated on workstation # [id number]
--- NOTE | 2020-05-01 16:01 | Diagnostic Imaging Report ---
INDICATION: Epigastric pain and shortness of breath. FINDINGS: There is a large hiatal hernia. Heart size is normal. Mediastinum is unremarkable. There is no pneumothorax. There are some dilated loops of small bowel in the midabdomen. IMPRESSION: 1. Large hiatal hernia. 2. Dilated loops of small bowel suspect for small bowel obstruction. Dictated by: Dictated on workstation # [id number]
[2020-05-01] MEDS ORDERED: PROMETHAZINE INJ 25 MG/ML (PHENERGAN) AMP IVP ONE (16:15)
[2020-05-01] MEDS ORDERED: HYDR-3817 PO (16:24)
--- NOTE | 2020-05-01 16:24 | Progress Note-Pre Operative ---
Pre-Operative Progress Note H&P Reviewed The H&P was reviewed, patient examined and no changes noted. Date Seen by Provider: May 01, 2020 Time Seen by Provider: 16:30 Date H&P Reviewed: May 01, 2020 Time H&P Reviewed: 16:30 Pre-Operative Diagnosis: incarcerated ventral abdominal hernia PATRICK TRIPATHI MD May 01, 2020 16:24
--- NOTE | 2020-05-01 16:25 | Discharge Inst-Surgical ---
D/C Lap Instructions-BHUMI New, Converted, or Re-Newed RX: RX on Chart Follow Up Appt in 2 weeks Activity as tolerated No driving for 24 hours No driving while on pain medications Incentive Spirometry use every 2 hours while awake Regular Diet Symptoms to Report: Fever over 101 degree F, Nausea/Vomiting Infection Signs and Symptoms to report: Increased redness, Foul odor of wound, Increased drainage Bathing instructions: May shower Operative Area Clean/Dry; Keep incision clean/dry If any problems/questions: Contact your physician or go to Emergency Room PATRICK TRIPATHI MD May 01, 2020 16:25
[2020-05-01] MEDS ORDERED: fentaNYL INJECTION 100 MCG/2 ML AMP IVP PRN (16:30)
[2020-05-01] MEDS ORDERED: HYDROcodone/APAP 7.5 MG/325 MG (LORTAB, LORCET PLUS) TABLET PO PRN (16:30)
[2020-05-01 16:40] VITALS: BP 130/59
[2020-05-01] MEDS ORDERED: CATHETER FLUSH 10 ML SYR IV PRN (17:00)
[2020-05-01] MEDS: LACTATED RINGERS 1,000 ML IV SCH (17:19)
--- NOTE | 2020-05-01 17:56 | HISTORY AND PHYSICAL ---
DATE OF SERVICE: ATTENDING PRIMARY CARE PHYSICIAN Celia Sadler DO HISTORY OF PRESENT ILLNESS: The patient is a 55-year-old female who presented to the Emergency Department with abdominal pain, more in the epigastric region. She states that she is able to eat and also did have a bowel movement today. She states that she has had a similar type of pain before in the past few months as well. A CT scan was performed, which did show what appears to be an incarcerated ventral abdominal hernia. She does have some discomfort; however, no peritoneal signs. She is afebrile and has a normal white count. She also did have previous cardiac workup with an echocardiogram, which did show an ejection fraction of 60%. PAST MEDICAL HISTORY: Degenerative joint disease. PAST SURGICAL HISTORY: Left foot surgery, knee arthroscopy. ALLERGIES: LEVOFLOXACIN. MEDICATIONS: Multivitamin daily. SOCIAL HISTORY: Negative smoke, negative alcohol. FAMILY HISTORY: Noncontributory. VITAL SIGNS: Temperature 35.9, blood pressure 167/92, pulse 75, respirations 18, pulse ox 99% on room air. REVIEW OF SYSTEMS: A well-nourished female, currently in no acute distress. She is not experiencing any shortness of breath or difficulty breathing. No chest pain, palpitations, diaphoresis. No nausea, vomiting. No diarrhea, constipation. No red blood per rectum, no dark tarry stools. No fever, chills, no recent inadvertent weight loss. All other review of systems negative. PHYSICAL EXAMINATION: CHEST: Clear. Good breath sounds bilaterally. HEART: Regular, no murmurs. EXTREMITIES: No lower extremity edema, negative Homans sign. HEENT: No scleral icterus. NECK: No cervical lymphadenopathy. ABDOMEN: Soft, nondistended. There is pain supraumbilically. LABORATORY DATA: WBC 9.4, hemoglobin 14.2, hematocrit 43, platelets 259. BUN 18, creatinine 0.86. ASSESSMENT AND PLAN: A 55-year-old female with a symptomatic incarcerated ventral abdominal hernia. We will admit her, start IV fluids, clear liquid diet as well as adequate pain control; however, also schedule her for an open ventral abdominal hernia repair with mesh. Job ID: [id number] DocumentID: [id number] Dictated Date: 05/01/2020 16:33:19 Bowling Floor Desk Clerk Date: 05/01/2020 17:55:03 Dictated By: PATRICK TRIPATHI MD
[2020-05-01 19:38] VITALS: BP 120/65
[2020-05-02] VITALS (10 sets, daily range): BP systolic 104–146; BP diastolic 59–81
[2020-05-02] MEDS: LACTATED RINGERS 1,000 ML IV SCH ×2 (02:07→08:09)
[2020-05-02 05:48] LABS: BASOPHILS # (AUTO) 0.1 10^3/uL (0.0-0.1); BASOPHILS % (AUTO) 1 % (0-10); EOSINOPHILS # (AUTO) 0.1 10^3/uL (0.0-0.3); EOSINOPHILS % (AUTO) 1 % (0-10); HEMATOCRIT 38 % (35-52); HEMOGLOBIN 12.8 g/dL (11.5-16.0); LYMPHOCYTES # (AUTO) 1.9 10^3/uL (1.0-4.0); LYMPHOCYTES % (AUTO) 26 % (12-44); MEAN CORPUSCULAR HEMOGLOBIN 30 pg (25-34); MEAN CORPUSCULAR HGB CONC 34 g/dL (32-36); MEAN CORPUSCULAR VOLUME 90 fL (80-99); MEAN PLATELET VOLUME 10.7 fL (9.0-12.2); MONOCYTES # (AUTO) 0.4 10^3/uL (0.0-1.0); MONOCYTES % (AUTO) 6 % (0-12); NEUTROPHILS # (AUTO) 4.9 10^3/uL (1.8-7.8); NEUTROPHILS % (AUTO) 66 % (42-75); PLATELET COUNT 221 10^3/uL (130-400); WHITE BLOOD COUNT 7.3 10^3/uL (4.3-11.0)
[2020-05-02 06:00] LABS: ALBUMIN 3.7 GM/DL (3.2-4.5); CHLORIDE 107 MMOL/L (98-107); POTASSIUM 3.7 MMOL/L (3.6-5.0); SODIUM 141 MMOL/L (135-145)
[2020-05-02 06:01] LABS: CALCIUM 8.7 MG/DL (8.5-10.1)
[2020-05-02 06:02] LABS: GLUCOSE 79 MG/DL (70-105); TOTAL PROTEIN 6.3 GM/DL (6.4-8.2)
[2020-05-02 06:04] LABS: BILIRUBIN,TOTAL 0.4 MG/DL (0.1-1.0); CARBON DIOXIDE 27 MMOL/L (21-32)
[2020-05-02 06:06] LABS: ALKALINE PHOSPHATASE 53 U/L (40-136); CREATININE SERUM 0.85 MG/DL (0.60-1.30); GFR ESTIMATED > 60
[2020-05-02 06:07] LABS: BUN/CREATININE RATIO 13
[2020-05-02 06:09] LABS: ALANINE AMINOTRANSFERASE 21 U/L (0-55)
[2020-05-02] MEDS ORDERED: LIDOCAINE PF 2% 5 ML (XYLOCAINE) VIAL ONE (08:36)
[2020-05-02] MEDS ORDERED: proPOfol 200 MG/20 ML (DIPRIVAN) VIAL IV ONE (08:36)
[2020-05-02] MEDS ORDERED: fentaNYL INJECTION 100 MCG/2 ML AMP ONE (08:36)
[2020-05-02] MEDS ORDERED: ONDANSETRON 4 MG/2 ML (SDV) Z0FRAN ONE ×3 (08:36→10:40)
[2020-05-02] MEDS ORDERED: MIDAZOLAM 2 MG/2 ML (VERSED) VIAL ONE (08:36)
[2020-05-02] MEDS ORDERED: ROCURONIUM 10 MG/ML 5 ML SYRINGE IV ONE (08:36)
[2020-05-02] MEDS ORDERED: SEVOFLURANE (ULTANE) 15 ML INHAL SOLN ONE ×7 (08:38→10:24)
[2020-05-02] MEDS ORDERED: SUCCINYLCHOLINE INJ 100 MG/5 ML SYR/VIAL ONE (08:38)
[2020-05-02] MEDS ORDERED: PANTOPRAZOLE 40 MG (PROTONIX) VIAL IV SCH (09:00)
[2020-05-02] MEDS ORDERED: LIDOCAINE/EPI 1%-1:100,000 (XYLOCAINE) 50 ML ONE (09:13)
[2020-05-02] MEDS ORDERED: FAMOTIDINE 20MG/2ML IV (PEPCID) ONE (09:38)
[2020-05-02] MEDS ORDERED: FAMOTIDINE 20MG/2ML IV (PEPCID) IV NR (09:45)
[2020-05-02] MEDS ORDERED: ceFAZolin INJECTION 2,000 MG ONE (09:54)
[2020-05-02] MEDS ORDERED: ceFAZolin INJECTION 1,000 MG VIAL IV ONE (10:00)
[2020-05-02] MEDS ORDERED: LACTATED RINGERS 1,000 ML IV PRN (10:00)
[2020-05-02] MEDS ORDERED: NEOSTIGMINE 3 MG/3 ML VIAL ONE (10:25)
[2020-05-02] MEDS ORDERED: GLYCOPYRROLATE 0.2 MG/ML (ROBINUL) 2 ML VIAL ONE (10:25)
[2020-05-02] MEDS ORDERED: morphine INJ 10 MG/ML 1ML (SYR OR VIAL) ONE (10:40)
--- NOTE | 2020-05-02 10:44 | Progress Note-Post Operative ---
Post-Operative Progess Note Surgeon (s)/Hoop Maker Helper Machine (s) Surgeon PATRICK TRIPATHI MD Hoop Maker Helper Machine: alessandro reese Pre-Operative Diagnosis incarcerated ventral abdominal hernia Post-Operative Diagnosis same Procedure & Operative Findings Date of Procedure 05/02/20 Procedure Performed/Findings open incarcerated ventral abdominal hernia repair with mesh. Anesthesia Type get Estimated Blood Loss Estimated blood loss (mL): minimal Specimens/Packing Specimens Removed hernia sac PATRICK TRIPATHI MD May 02, 2020 10:44
[2020-05-02] MEDS ORDERED: KETOROLAC 30 MG/ML VIAL ONE (10:50)
[2020-05-02] MEDS ORDERED: ONDANSETRON 4 MG/2 ML (SDV) Z0FRAN IVP PRN (11:00)
[2020-05-02] MEDS ORDERED: KETOROLAC 30 MG/ML VIAL IVP ONE (11:00)
[2020-05-02] MEDS ORDERED: PROMETHAZINE INJ 25 MG/ML (PHENERGAN) AMP IVP ONE (11:00)
[2020-05-02] MEDS ORDERED: KETOROLAC 30 MG/ML VIAL IVP PRN (12:15)
--- NOTE | 2020-05-02 17:38 | OPERATIVE REPORT ---
DATE OF SERVICE: 05/02/2020 ATTENDING PRIMARY CARE PHYSICIAN: Dr. Celia Sadler. PREOPERATIVE DIAGNOSIS: Symptomatic incarcerated ventral abdominal hernia. POSTOPERATIVE DIAGNOSIS: Symptomatic incarcerated ventral abdominal hernia with omentum within the hernia sac. PROCEDURE PERFORMED: Open repair of incarcerated ventral abdominal hernia with mesh. SURGEON: Patrick Tripathi MD. CATARACT LENS GENERATOR: Hari Harris APRN. ANESTHESIA: General endotracheal. ESTIMATED BLOOD LOSS: Minimal. FINDINGS: Same as postoperative diagnosis. DISPOSITION: The patient tolerated the procedure well. INDICATIONS FOR PROCEDURE: The patient is a 55-year-old female, who presented to the emergency department with abdominal pain. She states that she was able to eat and have normal bowel movements; however, did have significant amount of pain as well as a palpable bulge supraumbilically. She states that she has had some similar type of pain before in the past; however, not as severe. A CT scan was performed, which did show an incarcerated ventral abdominal hernia. DESCRIPTION OF PROCEDURE: The patient was brought to the operating room and laid supine on the table. After adequate IV pain and sedative medications and general endotracheal intubation, the abdomen was prepped and draped in a standard surgical fashion. A 0.5% Marcaine with epinephrine was then used to anesthetize the overlying skin and a transverse skin incision was made using a 15-blade. Subcutaneous tissue was then dissected down using electrocautery and the hernia sac identified and dissected out using blunt dissection as well as electrocautery to the fascia. The hernia sac was then opened using Metzenbaum scissors with only omentum within the hernia sac. The hernia sac was then completely excised using electrocautery under direct visualization. The defect was small only approximately 1.5 cm in size. A 6.4 cm round coated polypropylene mesh was then placed into the defect and sutured concentrically transfascially around the mesh using 0 Prolene interrupted sutures. Good hemostasis was observed. The subcutaneous tissue was then reapproximated using 3-0 Vicryl interrupted sutures and the skin was closed using 4-0 Monocryl running subcuticular suture. Wound was then cleaned and covered with Dermabond. The region was then covered with tonsil sponges followed by 4 x 4 gauze followed by large Op-Site and abdominal binder. The patient tolerated the procedure well. We will start IV normal pain medication as well as a clear liquid diet. When she is tolerating clears, has good pain control with oral pain medications and ambulating well, we will discharge her home. Job ID: [id number] DocumentID: [id number] Dictated Date: 05/02/2020 10:50:00 Interior Design Consultant Date: 05/02/2020 17:37:45 Dictated By: PATRICK TRIPATHI MD
--- NOTE | 2020-05-03 06:38 | Anesthesia-General Post-Op ---
General Patient Condition Mental Status/LOC: Same as Preop Cardiovascular: Satisfactory Nausea/Vomiting: Absent Respiratory: Satisfactory Pain: Controlled Complications: Absent Post Op Complications Complications None Follow Up Care/Instructions Patient Instructions None needed. Anesthesia/Patient Condition Patient Condition Patient is doing well, no complaints, stable vital signs, no apparent adverse anesthesia problems. No complications reported per nursing. VANESSA NEW CRNA May 03, 2020 06:38
--- NOTE | 2020-05-04 07:57 | NUR ---
Received dietary consult for MST score. Note pt has discharged at this time. Kavita Najera, MS RD LD
== END 2020-05-02 15:15 | disposition home or self-care (01) | DRG 355 ==
LOC: ER 14:48 → 4TH 16:05
PROVIDERS: ADMIT Surgery; ATTEND Surgery
PROC: 0WUF0JZ Supplement Abdominal Wall with Synthetic Substitute, Open Approach (ICD-10-PCS; principal; 2020-05-02 09:43)
DX: K43.6 Other and unspecified ventral hernia with obstruction, without gangrene (principal); K44.9 Diaphragmatic hernia without obstruction or gangrene; Z20.822 Contact with and (suspected) exposure to COVID-19
CPT/HCPCS: 36415; 71045; 74177; 80053; 80320; 83690; 84484; 85025; 86141; 87081; 87635; 93005

== ENCOUNTER → 2020-08-30 | Outpatient (CLI) | payer BC ==
[~2020-08-30] MED LIST changes: +HYDR-3817 PO
--- NOTE | 2020-08-30 11:18 | Diagnostic Imaging Report ---
INDICATION: Routine screening. COMPARISON: 08/29/2019. TECHNIQUE: 2D and 3D bilateral screening mammography was performed with CAD. FINDINGS: Scattered fibroglandular densities are identified bilaterally. A circumscribed nodule in the outer right breast is stable. No spiculated mass or malignant appearing microcalcifications are seen. The axillae are unremarkable. IMPRESSION: No mammographic features suspicious for malignancy are identified. ACR BI-RADS Category 2: Benign findings. Result letter will be mailed to the patient. Note: At least 10% of breast cancer is not imaged by mammography. Dictated by: Dictated on workstation # [id number]
== END ==
LOC: RAD 09:00
PROVIDERS: ATTEND Internal Medicine
DX: Z12.31 Encounter for screening mammogram for malignant neoplasm of breast (principal)
CPT/HCPCS: 77063; 77067

== ENCOUNTER → 2022-05-30 | Outpatient (CLI) | payer BC ==
--- NOTE | 2022-05-30 13:19 | Diagnostic Imaging Report ---
INDICATION: Postmenopausal state, screening for osteoporosis. COMPARISON: None available FINDINGS: AP Spine L1-L4: [BMD (g/cm2): 1.287] [T-Score: 0.7] [Z-Score: 0.8] [BMD Previous: na] [BMD % Change: na] LT Hip Neck: [BMD (g/cm2): 0.986] [T-Score: -0.4] [Z-Score: 0.2] LT Hip Total: [BMD (g/cm2):1.067] [T-Score:0.5] [Z-Score: 0.6] [BMD Previous: na] [BMD % Change: na] RT Hip Neck: [BMD (g/cm2):0.969] [T-Score:-0.5] [Z-Score:0.1] RT Hip Total: [BMD (g/cm2):1.070] [T-score:0.5] [Z-Score:0.7] [BMD Previous:na] [BMD % Change:na] *Indicates significant change from prior examination based on 95% confidence level. World Health Organization criteria for BMD interpretation classify patients as Normal (T-score at or above -1.0), Osteopenic (T-score between -1.0 and -2.5) or Osteoporotic (T-score at or below -2.5). LIMITATIONS AND MODIFICATION: None. IMPRESSION: 1. Normal bone mineral density. 2. Baseline examination. 3. See below National Osteoporosis Foundation guidelines on when to potentially initiate pharmacologic therapy. Based on the National Osteoporosis Foundation Guidelines, pharmacologic treatment should be initiated in any of the following, unless clinical conditions suggest otherwise: * Any patient with prior fragility fracture of the hip or vertebrae. A spine fracture indicates 5X risk for subsequent spine fracture and 2X risk for subsequent hip fracture. * Osteoporosis (T-score <-2.5). * Postmenopausal women and men age 50 and older with low bone mass/osteopenia (T-score between -1.0 and -2.5) by DXA and 10-year major osteoporotic fracture greater than 20% or a 10-year probability of hip fracture greater than 3%. These fracture risks are supplied above in the FRAX score, if applicable. * Clinician judgement and/or patient preferences may indicate treatment for people with 10-year fracture probabilities above or below these levels. Dictated by: Dictated on workstation # [id number]
--- NOTE | 2022-05-30 16:52 | Diagnostic Imaging Report ---
3D bilateral screening mammogram with CAD. This study was compared to the prior exams of 08/30/2020 and 08/29/2019. There are no current complaints. FINDINGS: There are scattered fibroglandular densities in both breasts which could obscure a lesion. In the interval since the previous exam, a small benign-appearing 3 mm nodular asymmetry has developed in the 5 o'clock position of the right breast at mid depth. I suspect that this is a benign process such as a cyst. Even so, I would recommend that ultrasound be performed for further study. The overall appearance of the breast has not changed otherwise. There is no primary or secondary sign of malignancy noted. IMPRESSION: 1. Ultrasound of the right breast would be recommended for further evaluation of the benign-appearing newly developed nodular asymmetry in the 5 o'clock position. 2. ACR Category 0. ACR BI-RADS Category 0: Incomplete. (Needs additional imaging evaluation). Result letter will be mailed to the patient. Note: At least 10% of breast cancer is not imaged by mammography. Dictated by: Dictated on workstation # [id number]
== END ==
LOC: RAD 10:33
PROVIDERS: ATTEND Internal Medicine
DX: Z12.31 Encounter for screening mammogram for malignant neoplasm of breast (principal); R92.8 Other abnormal and inconclusive findings on diagnostic imaging of breast; Q78.0 Osteogenesis imperfecta; Z78.0 Asymptomatic menopausal state
CPT/HCPCS: 77063; 77067; 77080

== ENCOUNTER → 2022-06-07 | Outpatient (CLI) | payer BC ==
--- NOTE | 2022-06-07 14:56 | Diagnostic Imaging Report ---
INDICATION: Right breast density noted on recent screening mammogram. Study is performed for further evaluation. Correlation is made with screening mammogram from 05/30/2022. Sonographic interrogation of the lower inner right breast was performed. There is a small cyst at the 5 o'clock location, 3 to 4 cm from the nipple measuring 3 mm x 4 mm in size. This likely accounts for the mammographic density. No internal vascularity or posterior acoustic shadowing is seen. No other masses are identified. IMPRESSION: Tiny cyst 5 o'clock location right breast, likely accounting for the mammographic density. The patient may return to routine annual screening mammography. ACR BI-RADS Category 2: Benign findings. Result letter will be mailed to the patient. Note: At least 10% of breast cancer is not imaged by mammography. BI-RADS Category 2 Dictated by: Dictated on workstation # [id number]
== END ==
LOC: RAD 12:28
PROVIDERS: ATTEND Internal Medicine
DX: N63.10 Unspecified lump in the right breast, unspecified quadrant (principal)